=== PATIENT | female | born 1980 | race Two or more races ===

== ENCOUNTER 2018-05-15 10:27 | Emergency (ER) | payer OTHER ==
[~2018-05-15] VITALS: Ht 167.6 cm; Wt 63.5 kg
[2018-05-15] MEDS ORDERED: IBUPROFEN 600 MG TABLET ONE (10:48)
[2018-05-15] MEDS: IBUPROFEN 600 MG TABLET PO ONE (10:48)
--- NOTE | 2018-05-15 11:11 | NUR ---
Patient discharged to home in stable conditon. Written and verbal after care instructions given. Patient verbalizes understanding of instructions.pt walks in steady gait. pt pain down to tolerable level. pt with family member.
== END 2018-05-15 11:15 | disposition home or self-care (01) ==
LOC: ER 10:27
DX: S63.501A Unspecified sprain of right wrist, initial encounter (principal); E11.9 Type 2 diabetes mellitus without complications; V89.2XXA Person injured in unspecified motor-vehicle accident, traffic, initial encounter; Y93.89 Activity, other specified; Y92.89 Other specified places as the place of occurrence of the external cause; Y99.8 Other external cause status
CPT/HCPCS: 29125; 73110; 99284; A4663